=== PATIENT | female | born 1990 | race Hispanic/Latino ===

== ENCOUNTER 2023-09-08 10:45 | Outpatient (CLI) | payer OTHER | END 2023-09-08 10:46 | disposition home or self-care (01) | LOC: BICULT 10:45 | PROVIDERS: ATTEND Advanced Practice Midwife | DX: O09.92 Supervision of high risk pregnancy, unspecified, second trimester (principal); Z3A.20 20 weeks gestation of pregnancy | CPT/HCPCS: 76805 ==